=== PATIENT | female | born 1930 | race Caucasian/White ===

== ENCOUNTER → 2016-10-05 | Outpatient (CLI) | payer OTHER, MEDICARE ==
--- NOTE | 2016-10-05 16:48 | US ---
Thyroid Ultrasound INDICATION: Single nodular goiter. TECHNIQUE: Thyroid ultrasound is performed. No priors for comparison. FINDINGS: Right thyroid gland measures 3.6 x 1.9 x 1.7 cm. There appears to be a fold in the right th yroid gland. Specifically, there is an upper and the lower part to the right thyroid gland scan, with a septation between them. The two parts appear to connect in a U-shaped turn. The thyroid gland is v mabel heterogeneous with normal vascularity. Left thyroid gland measures 1.6 x 1.1 x 0.7 cm. It is also very heterogeneous, with normal vascularit y. Surrounding vessels are normal. IMPRESSION: 1. Bilateral very heterogeneous thyroid glands. 2. Either a fold in the right thyroid gland with a posterior lobe, or a mass/nodule at the inferior a spect of the right thyroid gland. Due to similarity of the echogenicity of the two parts of the right thyroid gland, a parathyroid abnormality completely separate from the thyroid gland is thought to be less likely.
== END ==
LOC: FIMAGING 14:02
PROVIDERS: ATTEND Internal Medicine Cardiovascular Disease
DX: E04.1 Nontoxic single thyroid nodule (principal)

== ENCOUNTER → 2017-03-26 | Outpatient (CLI) | payer OTHER, MEDICARE | LOC: BHFA 14:30 | PROVIDERS: ATTEND Internal Medicine Cardiovascular Disease | DX: I48.91 Unspecified atrial fibrillation (principal); I25.10 Atherosclerotic heart disease of native coronary artery without angina pectoris ==

== ENCOUNTER → 2017-04-03 | Outpatient (CLI) | payer OTHER, MEDICARE | LOC: FIMAGING 10:20 | PROVIDERS: ATTEND Internal Medicine | DX: Z86.39 Personal history of other endocrine, nutritional and metabolic disease (principal) ==

== ENCOUNTER → 2017-09-27 | Outpatient (CLI) | payer OTHER, MEDICARE | LOC: BHFA 13:15 | PROVIDERS: ATTEND Internal Medicine Cardiovascular Disease | DX: I34.0 Nonrheumatic mitral (valve) insufficiency (principal); I25.10 Atherosclerotic heart disease of native coronary artery without angina pectoris; I48.91 Unspecified atrial fibrillation ==

== ENCOUNTER 2017-10-10 09:14 | Day surgery (SDC) | payer OTHER, MEDICARE ==
[2017-10-10] MEDS ORDERED: LIDOCAINE 1% 300 MG/30 ML SDV SC ONE (09:19)
--- NOTE | 2017-10-10 11:49 | PDHPUP ---
History & Physical Update H&P update statement: This history and physical update is based on an assessment of the patient which was completed after admission or registration (within 24 hours), but prior to the surgery/procedure. H&P update: H&P reviewed & patient examined, no change in patient's condition since H&P completed
--- NOTE | 2017-10-10 15:08 | CPIP ---
[f rep st] INVASIVE CARDIAC PROCEDURE DATE OF PROCEDURE: 10/10/2017 PROCEDURE: LINQ IQ loop recorder insertion. COMPLICATIONS: None. INDICATION/APPROPRIATE USE CRITERIA: The patient has a history of a prior myocardial infarction, but with normal ejection fraction. 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 Because of her medical history and prior cardiac problems, we felt the possib ility of a sudden tachycardia-dysrhythmia versus a sudden bradycardia or pause may be responsible for the patient's episodes of unexplained sudden syncope. DEVICE: [email or web address] LINQ, serial #[id number]. PROCEDURE IN DETAIL: After informed consent was obtained, the region of the left parasternal region was cleaned, prepped, and draped in sterile fashion. Approximately 5 mL of 1% lidocaine was utilized for local anesthesia. A #12 blade was used to sharply incise the skin. The dissection tool provide d with the LINQ IQ device was then used to tunnel a pocket at a 45-degree angle away from the sternum and facing downward toward the usual axis of the heart was formed. The device was then inserted car efully, and then direct and local pressure was applied for hemostasis. Excellent hemostasis was docu mented. Three jefferson were used for closure of the incision. The patient tolerated the procedure we ll without immediate complication and will be discharged to home in 30 minutes, as soon as she is abl e to ambulate and take p.o. without assistance. The device was set with tachy on it, monitoring at 1 43 beats per minute and bradycardia monitoring at heart rates of less than 30. Pauses were to be rec orded at less than 3 seconds, and atrial fibrillation detection is on. /[id number]/MODL
== END 2017-10-10 10:00 | disposition home or self-care (01) ==
LOC: FCATH 09:14
PROVIDERS: ATTEND Internal Medicine Cardiovascular Disease
PROC: 0JH60PZ Insertion of Cardiac Rhythm Related Device into Chest Subcutaneous Tissue and Fascia, Open Approach (ICD-10-PCS; principal; 2017-10-10)
DX: R55 Syncope and collapse (principal); I48.91 Unspecified atrial fibrillation; I34.0 Nonrheumatic mitral (valve) insufficiency; I25.2 Old myocardial infarction; I25.10 Atherosclerotic heart disease of native coronary artery without angina pectoris; E03.9 Hypothyroidism, unspecified; M81.0 Age-related osteoporosis without current pathological fracture; Z79.82 Long term (current) use of aspirin; Z86.010 Personal history of colon polyps; Z90.13 Acquired absence of bilateral breasts and nipples
CPT/HCPCS: C1764

== ENCOUNTER → 2018-03-12 | Outpatient (CLI) | payer OTHER, MEDICARE | PROVIDERS: ATTEND Physician Assistant | DX: R13.10 Dysphagia, unspecified (principal); F45.8 Other somatoform disorders; J38.7 Other diseases of larynx | CPT/HCPCS: 74230; 92611; G8996; G8997; G8998 ==

== ENCOUNTER → 2018-05-13 | Outpatient (CLI) | payer OTHER, MEDICARE | LOC: BHFA 11:15 | PROVIDERS: ATTEND Internal Medicine Cardiovascular Disease | DX: R55 Syncope and collapse (principal); I48.91 Unspecified atrial fibrillation; I49.5 Sick sinus syndrome; I25.10 Atherosclerotic heart disease of native coronary artery without angina pectoris ==

== ENCOUNTER 2018-05-29 07:43 | Observation (INO) | payer OTHER, MEDICARE ==
[2018-05-29] MEDS ORDERED: NS 1,000 ML IV ONE (07:45)
[2018-05-29] MEDS ORDERED: DIAZEPAM 5 MG TAB PO ONE (07:45)
[2018-05-29] MEDS ORDERED: BACITRACIN IRRIGATION/NS 50,000 UNITS/1,000 ML BTL IRR ONE (07:45)
[2018-05-29] MEDS ORDERED: diphenhydrAMINE 25 MG CAP PO ONE (07:45)
[2018-05-29 08:27] LABS: PLATELET COUNT 225 10^3/uL (150-400)
[2018-05-29] MEDS ORDERED: VANCOMYCIN HCL/NORMAL SALINE 250 ML IV ONE (08:30)
[2018-05-29 08:34] LABS: INR 0.99 (0.83-1.16); PROTIME(PATIENT) 13.3 SEC (12.0-15.0)
--- NOTE | 2018-05-29 08:41 | CPEKG ---
Test Reason : OPEN Blood Pressure : / mmHG Vent. Rate : 064 BPM Atrial Rate : 064 BPM P-R Int : 138 ms QRS Dur : 078 ms QT Int : 534 ms P-R-T Axes : 069 -49 009 degrees QTc Int : 551 ms Sinus rhythm Left anterior fascicular block Borderline T wave abnormalities Prolonged QT interval Confirmed by Dominic Villafuerte ([id number]) on 05/29/2018 8:41:09 AM Referred By: Confirmed By:Dominic Villafuerte
[2018-05-29] MEDS ORDERED: LIDOCAINE 1% 300 MG/30 ML SDV ONE (08:56)
[2018-05-29] MEDS ORDERED: LIDO/EPI 1% **for epidural** 30 ML SDV ONE (08:56)
[2018-05-29] MEDS ORDERED: MIDAZOLAM 2 MG/2 ML VIAL ONE (08:57)
[2018-05-29] MEDS ORDERED: fentaNYL 100 MCG/2 ML INJ ONE (08:57)
[2018-05-29] MEDS ORDERED: IOPAMIDOL (ISOVUE-300) 100 ML BTL ONE (08:58)
[2018-05-29] MEDS ORDERED: BUPIVACAINE 0.75% 10 ML SDV ONE (08:58)
--- NOTE | 2018-05-29 08:59 | PDPROPOC ---
Sedation Plan of Care Sedation Plan of Care: vital signs stable, mental status noted, patient educated of risks, benefits, alternatives, patient can tolerate sedation ASA Classification: ASA 3 Planned drugs: fentanyl, midazolam Mallampati Score: Class 2 Mallampati Reference Image: Patient passed 3-3-2 rule?: Yes
[2018-05-29] MEDS ORDERED: NS 1,000 ML IV SCH (11:00)
--- NOTE | 2018-05-29 11:03 | POSTOPPROG ---
Post Op Note Date of Operation: 05/29/18 Surgeon: Krishna Zavala Pre-op Diagnosis: SYMPTOMATIC SICK SINUS SYNDROME Post-op Diagnosis: SSS S/P PACER Indication: ABOVE Procedure: DUAL CHAMBER PACER INSERTION Inf/Abcess present in the surg proc area at time of surgery?: No Depth: Superfical (Skin SQ) EBL: Minimal Complications: DUAL CHAMBER PACER INSERTION WITHOUT IMMEDIATE COMPLICATION EKG AND CHEST X RAY PENDING
[2018-05-29] MEDS ORDERED: ONDANSETRON 4 MG/2 ML VIAL IVP PRN (14:21)
--- NOTE | 2018-05-29 15:21 | CPEKG ---
Test Reason : Post-pacemaker placement Blood Pressure : / mmHG Vent. Rate : 060 BPM Atrial Rate : 060 BPM P-R Int : 173 ms QRS Dur : 082 ms QT Int : 425 ms P-R-T Axes : 085 -52 -13 degrees QTc Int : 425 ms Atrial-paced rhythm Left anterior fascicular block Consider anterior infarct Borderline T abnormalities, inferior leads Confirmed by Dominic Villafuerte ([id number]) on 05/29/2018 3:21:06 PM Referred By: Confirmed By:Dominic Villafuerte
--- NOTE | 2018-05-29 22:25 | CPIP ---
DATE OF PROCEDURE: 05/29/2018 PROCEDURE: This is a dual-chamber pacemaker insertion. The device is an MRI conditional Biotronik E edmund 8 DR-T serial #[id number]. The atrial lead is a Biotronik Solia S 45, serial #[id number] and the ve ntricular lead is a Biotronik Solia S 53, serial #[id number]. Explant of a [employer] IQ loop recorder. INDICATIONS/APPROPRIATE USE CRITERIA: The patient has symptomatic sick sinus syndrome with intermitt ent sinus arrest and pauses with associated syncope documented to be as long as 4.8 seconds. The pat ient also has intermittent atrial fibrillation with rapid ventricular response and post-conversion pa uses which are symptomatic and concerning for risk of recurrent syncope. PROCEDURE IN DETAIL: After informed consent was obtained, n.p.o. status was confirmed, the region of the left subclavicular fossa was cleaned, prepped, and draped in sterile fashion. Venography perfor med in the left antecubital vein documented a widely patent left subclavian vein, although a somewhat tortuous course to the superior vena cava, right atrium and right ventricle without evidence of hien enital anomaly, obstruction, or thrombus. PROCEDURE IN DETAIL: The patient was placed in the Trendelenburg position. Approximately 15 cc of 1 % lidocaine was utilized for local anesthesia. An 18-gauge Cook needle was used to gain access to th e left subclavian vein x2 and J wires were advanced under direct fluoroscopic guidance into the infer ior vena cava. A #10 blade was used to sharply incise the skin. Electrocautery and local pressure w ere used for hemostasis. Sharp and blunt dissection were used to perform a pacer pocket overlying th e pectoralis major fascia. The lateral J-wire was used to advance a 6-Mongolian peel-away sheath. The dilator and wire were removed and a ventricular lead was placed with care into the low interventricul ar septum, screwed into place, tested and found to have a threshold of 0.7 V at 0.4 milliseconds. Le ad impedance was measured at 546 ohms with an R-wave measurement of 6.5. The lead was sutured in rebel ce with Ethibond. The procedure was repeated for a medial lead and positions were identified, the 2n d which was better. The P-wave amplitude was measured at 1.4 mV. The threshold was found to be 1 V at 0.4 milliseconds with a good current of injury. The lead was actively fixed in place with a set s crew in the right atrial appendage. The device was noted to pace well from both of the leads with a relatively narrow complex for ventricular pacing, indicating that the lead tip must be fairly close t o part of the q[place]angin conduction system. The atrial lead sheath was peeled away and then the lead was sutured into place with 0 Ethibond. Hemostasis was documented. The antibiotic soaked gauze was rem renny from the pocket. The atrial lead serial number was checked and placed in the upper pole lead ho using and set screw firmly applied. The procedure was repeated for the ventricular lead. The device was then placed in the pocket and sutured in place with 0 silk. The subcutaneous layer was closed w ith a 2-0 Vicryl interrupted vertical mattress suture followed by a 3-0 Vicryl interrupted horizontal mattress suture and then a stable skin closure followed by Steri-Strips. A sterile dry dressing was applied. The patient was taken to the post cath recovery unit in good and stable condition, where a stat postoperative chest x-ray will be obtained as well as an EKG. As part of this procedure, the l oop recorder, which was able to document the patient's sick sinus syndrome and post conversion pauses and sinus arrest was the loop recorder, which was identified under the skin. Approximately 5 cc of local anesthesia were used there. A 10 blade was used to open the skin and then the device was expla nted with the use of curved hemostats. Hemostasis was documented. The wound was closed with stapled closure and direct pressure was held to establish hemostasis. /[id number]/MODL
[2018-05-30 03:59] LABS: PLATELET COUNT 198 10^3/uL (150-400)
[2018-05-30] MEDS ORDERED: Herbals/Supplements -Info Only PO SCH (09:00)
[2018-05-30] MEDS ORDERED: LEVOTHYROXINE 50 MCG TAB PO SCH (09:00)
[2018-05-30] MEDS ORDERED: ASPIRIN 81 MG CHEWABLE TAB PO SCH (09:00)
[2018-05-30] MEDS ORDERED: DILTIAZEM CD 120 MG CAP PO SCH (09:00)
[2018-05-30] MEDS ORDERED: MULTIVITAMINS 1 EACH TAB PO SCH (09:00)
[2018-05-30] MEDS ORDERED: PNEUMOC 13-VAL CONJ-DIP CRM/PF 0.5 ML SYR IM ONE ×2 (11:00→14:00)
[2018-05-30 11:46] VITALS: BP 116/60
--- NOTE | 2018-05-30 14:30 | CPEKG ---
Test Reason : OPEN Blood Pressure : / mmHG Vent. Rate : 076 BPM Atrial Rate : 077 BPM P-R Int : 154 ms QRS Dur : 074 ms QT Int : 437 ms P-R-T Axes : 079 -45 006 degrees QTc Int : 492 ms Atrial-paced rhythm Left anterior fascicular block Low voltage, extremity leads Borderline prolonged QT interval Confirmed by Dominic Villafuerte ([id number]) on 05/30/2018 2:30:22 PM Referred By: Confirmed By:Dominic Villafuerte
--- NOTE | 2018-05-31 05:11 | GDS ---
ADMITTING DIAGNOSIS: 1. Sick sinus syndrome. 2. Syncope. 3. LINQ loop recorder showing sick sinus syndrome with sinus arrest and pauses. 4. Planned dual-chamber pacemaker placement. DISCHARGE DIAGNOSIS: 1. Status post successful placement of dual chamber MRI conditional Biotronik device. 2. Explant of [employer] LINQ IQ loop recorder with no complications. COURSE OF HOSPITALIZATION: Renu was scheduled for pacemaker insertion due to findings on her [facility] [facility] LINQ loop recorder of symptomatic sick sinus syndrome with intermittent sinus arrest and pauses and associated syncope documented to be 4.8 seconds. She also had intermittent atrial fibrillation with rapid ventricular response and post-conversion pauses that were symptomatic. This was concerning fo r risk of recurrent syncope. It was recommended that a pacemaker be placed which she agreed to. She was taken to the geoscience laboratory technician on 05/29/2018, by Dr. Krishna Zavala, where he was able to successfully plac e the pacemaker with no complications. She then was taken to PCU for overnight observation where she has done well. She has been up ambulating. The pacer site is intact with minimal ecchymosis or swe lling. She has been up in her room and is able to ambulate without problems. At this time, it is fe lt that she is stable for discharge. PHYSICAL EXAMINATION: VITAL SIGNS: Exam on day of discharge, blood pressure 116/60, heart rate 68 a nd regular, paced rhythm, oxygen saturation 91%. Heart rate regular with no murmurs, rubs, gallops. LUNGS: Sounds are clear to auscultation. No wheezes, rales, or rhonchi. CHEST: Pacemaker site is intact with no bleeding, induration, or pain. MEDICATIONS: She will go home on aspirin 81 mg daily, multivitamin 1 daily, levothyroxine 50 mcg krystal ly, diltiazem 120 mg daily, herbal supplements 1 daily. PROCEDURES: 1. 05/29/2018, dual-chamber pacemaker insertion. 2. Biotronik [place] device MRI conditional, serial #[id number]. Atrial lead and ventricular leads are Biotronik. 3. Explant of [employer] LINQ IQ loop recorder with no complications. Indications for procedu re: a. Symptomatic sick sinus syndrome. b. Intermittent sinus arrest and pauses with associated syncope documented to be 4.8 seconds long. c. Intermittent atrial fibrillation with rapid ventricular response and post-conversion pauses. d. There were no complications with the pacemaker placement or the extraction of the [employer] LINQ l oop recorder. 4. Chest x-ray on 05/30/2018, shows: a. Excellent pacemaker position without pneumothorax. b. Small right pleural effusion without pulmonary vascular plethora. DISCHARGE PLAN: 1. She will be discharged home with pacemaker instructions given verbally and written. She understa nds not to raise her arm above shoulder level for 4 weeks. 2. No heavy lifting, pushing, pulling greater than 10 pounds with left arm. 3. Avoid getting pacer site or LINQ site wet the first week. 4. Okay to shower lower body. 5. Low level of activity for one week. 6. Wear sling at night for the first few nights to keep arm stable. 7. Pacemaker check in one week with a wound check scheduled 06/05/2018, at 10:00. 8. Call the office for any concerns. 9. At this time, she currently is stable for discharge. /[id number]/MODL
== END 2018-05-30 15:18 | disposition home or self-care (01) ==
LOC: FCATH 07:43 → F2W 10:53
PROVIDERS: ADMIT Internal Medicine Cardiovascular Disease; ATTEND Internal Medicine Cardiovascular Disease
PROC: 0JPT32Z Removal of Monitoring Device from Trunk Subcutaneous Tissue and Fascia, Percutaneous Approach (ICD-10-PCS; principal; 2018-05-29)
PROC: 02H63JZ Insertion of Pacemaker Lead into Right Atrium, Percutaneous Approach (ICD-10-PCS; principal; 2018-05-29)
PROC: 02HK3JZ Insertion of Pacemaker Lead into Right Ventricle, Percutaneous Approach (ICD-10-PCS; principal; 2018-05-29)
PROC: 0JH636Z Insertion of Pacemaker, Dual Chamber into Chest Subcutaneous Tissue and Fascia, Percutaneous Approach (ICD-10-PCS; principal; 2018-05-29)
DX: I49.5 Sick sinus syndrome (principal); I25.10 Atherosclerotic heart disease of native coronary artery without angina pectoris; I48.0 Paroxysmal atrial fibrillation; E03.9 Hypothyroidism, unspecified
CPT/HCPCS: 33208; 33284; 71045; 71046; 90670; 93005; C1785; C1898; G0009; J2250; J2405; J3010; J3370; Q9967